=== PATIENT | female | born 1930 | race Caucasian/White ===

== ENCOUNTER 2016-10-23 14:35 | Emergency (ER) | payer MEDICARE, BC ==
[~2016-10-23] VITALS: Ht 160 cm; Wt 56.8 kg
[2016-10-23 14:40] VITALS: TEMP 97.4
[2016-10-23 15:09] LABS: BASO % 0.4 % (0.0-2.0); EOS # 0.1 (0.0-0.7); EOS % 1.5 % (0-4.0); GRAN % 76.3 % (42.2-75.2); HEMATOCRIT 41.2 % (37.0-47.0); HEMOGLOBIN 13.8 g/dl (12.5-16.0); LYMPH # 1.1 (1.2-3.4); LYMPH % 11.9 % (20.0-51.0); MEAN CELL VOLUME 97 fl (80.0-100.0); MEAN CORPUSCULAR HEMOGLOBIN 33 pg (27.0-31.0); MEAN CORPUSCULAR HGB CONC 34 g/dl (33.0-37.0); MONO # 0.9 (0.1-0.6); MONO % 9.7 % (1.7-9.3); PLATELET COUNT 200 K/mm3 (130-400); RED BLOOD COUNT 4.25 M/mm3 (4.10-5.30); WHITE BLOOD COUNT 9.1 K/mm3 (4.8-10.8)
[2016-10-23 15:18] LABS: ALANINE AMINOTRANSFERASE 29 U/L (9-52); ALKALINE PHOSPHATASE 66 U/L (50-136); ANION GAP 10 mmol/L (7-16); BILIRUBIN,TOTAL 0.6 mg/dL (0.0-1.0); BLOOD UREA NITROGEN 15 mg/dL (7-17); CARBON DIOXIDE 26 mmol/L (22-30); CHLORIDE 103 mmol/L (98-107); CREATININE, serum 0.64 mg/dL (0.52-1.25); GLUCOSE 103 mg/dL (74-106); POTASSIUM 3.6 mmol/L (3.4-5.0); SODIUM 139 mmol/L (137-145); TOTAL PROTEIN 7.2 gm/dL (6.4-8.2)
[2016-10-23] MEDS ORDERED: TYLENOL 325MG325 MG PO ×2 (15:28→15:30)
[2016-10-23] MEDS ORDERED: ZOFRAN 4MG T4 MG/TAB PO (15:28)
[2016-10-23] MEDS ORDERED: CALCIUM 600MG+D1 TAB PO (15:28)
[2016-10-23] MEDS ORDERED: SYNTHROID0.075 MG/T PO (15:29)
[2016-10-23] MEDS ORDERED: ZESTRIL40 MG PO (15:29)
[2016-10-23] MEDS ORDERED: GLUCOSAMIN 500 PO (15:29)
[2016-10-23] MEDS ORDERED: MELATONIN5 M1 PO (15:30)
[2016-10-23] MEDS ORDERED: ULTRAM 50MG TAB50 MG PO ×2 (15:30→15:32)
[2016-10-23] MEDS ORDERED: LIQUIFILM TEARS15 ML OU (15:31)
[2016-10-23] MEDS ORDERED: NEURONTIN100 MG/CAP PO (15:31)
[2016-10-23] MEDS ORDERED: NEURONTIN300 MG/CAP PO (15:31)
[2016-10-23] MEDS ORDERED: PRIL40 PO (15:32)
[2016-10-23] MEDS ORDERED: CARAFATE S1 GM/10 ML PO (15:32)
[2016-10-23 16:10] LABS: TROPONIN-I < 0.012 ng/mL (0.000-0.034)
[2016-10-23 17:51] VITALS: BP 148/75; PULSE 67
== END 2016-10-23 17:52 | disposition home or self-care (01) ==
LOC: COL.ER 14:35 → EDBD 14:35 → COL.ER 14:37
PROVIDERS: Emergency Medicine
DX: R55 Syncope and collapse (principal); I10 Essential (primary) hypertension; R11.10 Vomiting, unspecified; R42 Dizziness and giddiness
CPT/HCPCS: J2405